=== PATIENT | male | born 1995 ===

== ENCOUNTER 2018-06-25 18:55 | Emergency (ER) | payer OTHER ==
[2018-06-25 18:57] VITALS: BMI 21.2
--- NOTE | 2018-06-25 20:58 | ED PDOC ---
Arrival/HPI - General Chief Complaint: Finger,Hand,&Wrist Time Seen by Provider: 06/25/18 19:16 Historian: Patient - History of Present Illness Narrative History of Present Illness (Text): 06/25/18 20:53 22yo male with no pmhx who present to ED for evaluation of right 5th finger s/p trauma 3weeks ago. States his finger jammed on a basketball, while playing basketball. States pain is mild and usually at night. Also states he has not been able to fully extend the finger since the injury. Did not take any pain medication. Denies weakness, paresthesia, any other complaint. Past Medical History - Provider Review Nursing Documentation Reviewed: Yes - Infectious Disease Hx of Infectious Diseases: None - Psychiatric Hx Substance Use: No Family/Social History - Physician Review Nursing Documentation Reviewed: Yes Family/Social History: Unknown Family HX Smoking Status: Current Some Days Smoker Hx Alcohol Use: No Hx Substance Use: No Allergies/Home Meds Allergies/Adverse Reactions: Allergies No Known Allergies Allergy (Verified 02/03/17 19:50) Review of Systems - Physician Review All systems were reviewed & negative as marked: Yes - Review of Systems Constitutional: Normal Eyes: Normal ENT: Normal Respiratory: Normal Cardiovascular: Normal Gastrointestinal: Normal Genitourinary Male: Normal Musculoskeletal: Arthralgias (Right 5th finger) Skin: Normal Neurological: Normal Endocrine: Normal Hemo/Lymphatic: Normal Psychiatric: Normal Physical Exam Vital Signs Reviewed: Yes Vital Signs Temp Pulse Resp BP Pulse Ox 06/25/18 21:13 98.7 F 87 18 115/67 100 06/25/18 20:56 98 F 90 18 110/70 100 06/25/18 18:56 99 F 103 H 16 103/70 98 Temperature: Afebrile Blood Pressure: Normal Pulse: Regular Respiratory Rate: Normal Appearance: Positive for: Well-Appearing, Non-Toxic, Comfortable Pain Distress: None Mental Status: Positive for: Alert and Oriented X 3 - Systems Exam Head: Present: Atraumatic, Normocephalic Pupils: Present: PERRL Extroacular Muscles: Present: EOMI Conjunctiva: Present: Normal Mouth: Present: Moist Mucous Membranes Neck: Present: Normal Range of Motion Respiratory/Chest: Present: Clear to Auscultation, Good Air Exchange. No: Respiratory Distress, Accessory Muscle Use Cardiovascular: Present: Regular Rate and Rhythm, Normal S1, S2. No: Murmurs Abdomen: No: Tenderness, Distention, Peritoneal Signs Back: Present: Normal Inspection Upper Extremity: Present: NORMAL PULSES, Swelling (Mild swelling of right 5th finger), Neurovascularly Intact. No: Cyanosis, Edema, Normal ROM (5th finger in a flexed postion at the DIP joint), Tenderness (Right fifth finger) Lower Extremity: Present: Normal Inspection. No: Edema Neurological: Present: GCS=15, CN II-XII Intact, Speech Normal Skin: Present: Warm, Dry, Normal Color. No: Rashes Psychiatric: Present: Alert, Oriented x 3, Normal Insight, Normal Concentration Medical Decision Making ED Course and Treatment: 06/26/18 00:46 Right hand - No acute fracture. Pt have a trigger finger Injury occurred 3weeks ago . He is NVI. PT was placed on finger splint and was referred to otho. - RAD Interpretation Radiology Orders: 06/25/18 19:16 HAND RIGHT 3 VIEWS [RAD] Stat - Medication Orders Current Medication Orders: Discontinued Medications Ibuprofen (Motrin Tab) 600 mg PO STAT STA Stop: 06/25/18 20:55 Last Admin: 06/25/18 21:10 Dose: 600 mg MAR Pain/Vitals Document 06/25/18 21:10 LA (Rec: 06/25/18 21:10 LA [id number]) Pain Reassessment Is This A Pain ReAssessment? No Sleep Is patient sleeping during reassessment? No Presence of Pain Presence of Pain Yes Pain Scale Used Pain Scale Used Numeric Location Left, Right or Bilateral Right Pain Location Body Site Hand Intensity 4 Scale Used Numeric Disposition/Present on Arrival - Present on Arrival Any Indicators Present on Arrival: No History of DVT/PE: No History of Uncontrolled Diabetes: No Urinary Catheter: No History of Decub. Ulcer: No History Surgical Site Infection Following: None - Disposition Have Diagnosis and Disposition been Completed?: Yes Diagnosis: Trigger finger Disposition: HOME/ ROUTINE Disposition Time: 21:00 Patient Plan: Discharge Condition: STABLE Discharge Instructions (ExitCare): Trigger Finger (DC) Additional Instructions: Follow up with orthopedist Return to ED for any new or worsening symptoms Prescriptions: Ibuprofen [Motrin Tab] 600 mg PO Q6 #15 tab Referrals: Rene Mitchell MD [Staff Provider] - Follow up with primary Forms: [employer] (Georgian), WORK NOTE
[2018-06-25 21:10] VITALS: RESP 18; O2SAT 100
[2018-06-25 21:16] VITALS: BP 115/67; PULSE 87; TEMP 98.7
--- NOTE | 2018-06-26 08:54 | RAD ---
PROCEDURE: Right Hand Radiographs. HISTORY: 5th finger pain s/p trauma COMPARISON: None. FINDINGS: BONES: Normal. No fracture. JOINTS: Normal. No osteoarthritic changes. SOFT TISSUES: Normal. OTHER FINDINGS: None. IMPRESSION: Normal right hand radiographs.
== END 2018-06-25 21:13 | disposition home or self-care (01) ==
LOC: ED 18:55
DX: M65.351 Trigger finger, right little finger (principal)